=== PATIENT | female | born 1995 | race Hispanic/Latino ===

== ENCOUNTER → 2016-11-05 | Outpatient (REF) | payer OTHER ==
[2016-11-09 00:06] LABS: E001-IgE Cat Epith/Dander 3.57 kU/L (Class III); E005-IgE Dog Dander 0.88 kU/L (Class II); G002-IgE Bermuda Grass 0.22 kU/L (Class 0/I); G008-IgE Kentucky Bluegrass 0.88 kU/L (Class II); M001-IgE Penicillium chrysogen < 0.10 kU/L (Class 0); M002 IgE Cladosporium herbaru < 0.10 kU/L (Class 0); M003 IgE Aspergillus fumigatu < 0.10 kU/L (Class 0); M006-IgE Alternaria alternata < 0.10 kU/L (Class 0); T001-IgE Maple/Box Elder 0.14 kU/L (Class 0/I); T003-IgE Common Silver Birch 0.13 kU/L (Class 0/I); T007-IgE Oak, White 0.13 kU/L (Class 0/I); T008-IgE Elm, American 0.16 kU/L (Class 0/I); T041-IgE Hickory, White < 0.10 kU/L (Class 0); W001-IgE Ragweed, Short < 0.10 kU/L (Class 0); W009-IgE Plantain, English 0.15 kU/L (Class 0/I); W014-IgE Pigweed, Rough 0.12 kU/L (Class 0/I); W018-IgE Sheep Sorrel 0.14 kU/L (Class 0/I)
== END ==
LOC: M LAB REF 12:54
PROVIDERS: ATTEND Nurse Practitioner Adult Health
DX: J45.40 Moderate persistent asthma, uncomplicated (principal)

== ENCOUNTER 2017-03-20 15:59 | Emergency (ER) | payer OTHER ==
[~2017-03-20] VITALS: Ht 165.1 cm; Wt 61.8 kg
[2017-03-20] MEDS ORDERED: FERR325T3 PO (16:07)
[2017-03-20 17:10] LABS: CONTROL LINE UCG INT CTR LINE PRESENT
[2017-03-20] MEDS ORDERED: KETOROLAC 30 MG/ML VIAL (J1885) IV ONE (17:45)
[2017-03-20 18:45] LABS: BASO # 0.1 K/mm3 (0.0-0.2); BASO % 0.9 % (0.0-1.0); EOS # 0.3 K/mm3 (0.0-0.50); EOS % 3.2 % (0.0-3.0); LARGE UNSTAINED CELL # 0.2 K/mm3 (0.0-0.4); LARGE UNSTAINED CELL % 1.8 % (0.0-4.0); LYMPH # 2.4 K/mm3 (1.5-6.5); LYMPH % 23.7 % (24.0-44.0); MEAN CORPUSCULAR HGB CONC 29.2 g/dl (32.0-36.5); MEAN CORPUSCULAR VOLUME 75.2 fl (80.0-96.0); MONO # 0.5 K/mm3 (0.0-0.8); MONO % 5.2 % (0.0-5.0); NEUTROPHILS # 6.1 K/mm3 (1.8-7.7); NEUTROPHILS % 65.2 % (36.0-66.0); PLATELET COUNT, AUTOMATED 292 k/mm3 (150-450); WHITE BLOOD COUNT 9.3 K/mm3 (4.0-10.0)
[2017-03-20 18:46] LABS: ALBUMIN 4.1 GM/DL (3.2-5.2); ALBUMIN/GLOBULIN RATIO 0.98 (1.00-1.93); ALKALINE PHOSPHATASE 88 U/L (45-117); ALT/SGPT 16 U/L (12-78); ANION GAP 7 MEQ/L (8-16); AST/SGOT 22 U/L (15-37); BILIRUBIN,DIRECT 0.2 MG/DL (0.0-0.2); BILIRUBIN,TOTAL 0.5 MG/DL (0.2-1.0); BLOOD UREA NITROGEN 12 MG/DL (7-18); CALCIUM LEVEL 9.2 MG/DL (8.5-10.1); CARBON DIOXIDE LEVEL 28 MEQ/L (21-32); CHLORIDE LEVEL 106 MEQ/L (98-107); CREATININE FOR GFR 0.82 MG/DL (0.55-1.02); GLUCOSE, FASTING 86 MG/DL (70-105); POTASSIUM SERUM 4.2 MEQ/L (3.5-5.1); SODIUM LEVEL 141 MEQ/L (136-145); TOTAL PROTEIN 8.3 GM/DL (6.4-8.2)
[2017-03-20 18:55] LABS: ADD MORPHOLOGY? YES
[2017-03-20 18:56] VITALS: BP 125/67
[2017-03-20 19:41] LABS: ANISOCYTOSIS 1+; HYPOCHROMASIA 2+; MICROCYTOSIS 2+; SCHISTOCYTES 1+
[2017-03-20] MEDS ORDERED: MORPHINE 2 MG/ML 1ML SYRINGE IV ONE (20:00)
[2017-03-20] MEDS ORDERED: TRAM50TA2 PO (20:00)
--- NOTE | 2017-03-21 07:26 | REP ---
REASON: Pelvis pain. COMPARISON: None. Transvesical and transvaginal imaging was obtained. The uterus measures 5.5 x 3.2 x 4 cm. The parenchymal echo pattern is within normal limits. The endometrial echo complex is smooth and unremarkable appearing. There is a specular reflection within the endometrial cavity consistent with an IUD. The position of the IUD is within normal limits. There is no free fluid in the cul-de-sac. The right ovary measures 2.6 x 2.4 x 3.8 cm and is within normal limits with an RI of 0.72. The left ovary measures 2.6 x 2 x 1.9 cm and is within normal limits with an RI of 0.53. Urinary bladder measures 10 x 5 x 9 cm. IMPRESSION: Pelvic ultrasonography, as described above, is within normal limits. There is an IUD in place. Signed by Raul Scott DO 03/21/2017 02:43 P
== END 2017-03-20 20:20 | disposition home or self-care (01) ==
LOC: M ED 15:59
DX: N83.00 Follicular cyst of ovary, unspecified side (principal); Z97.5 Presence of (intrauterine) contraceptive device; N93.9 Abnormal uterine and vaginal bleeding, unspecified; J45.909 Unspecified asthma, uncomplicated; Z79.899 Other long term (current) drug therapy; Z91.013 Allergy to seafood; Z91.018 Allergy to other foods
CPT/HCPCS: 76830; 76856; 80048; 80076; 81001; 81025; 84703; 85025; 87086; 93976; 96374; 96375; 99283; J1885

== ENCOUNTER 2017-09-26 10:00 | Emergency (ER) | payer OTHER ==
[2017-09-26] MEDS: PERCOCET 5MG/325MG TAB PO (11:10)
[2017-09-26 11:27] LABS: BASO # 0.1 10^3/uL (0.0-0.2); BASO % 0.8 % (0.0-1.0); EOS # 0.2 10^3/uL (0.0-0.50); EOS % 2.5 % (0.0-3.0); HEMATOCRIT 33.8 % (36.0-47.0); HEMOGLOBIN 10.5 g/dl (12.0-16.0); IMMATURE GRANULOCYTE % 0.2 % (0-3.0); LYMPH # 2.2 10^3/uL (1.5-6.5); LYMPH % 25.8 % (24.0-44.0); MEAN CORPUSCULAR HEMOGLOBIN 24.3 pg (27.0-33.0); MEAN CORPUSCULAR HGB CONC 31.1 g/dl (32.0-36.5); MEAN CORPUSCULAR VOLUME 78.2 fl (80.0-96.0); MONO # 0.8 10^3/uL (0.0-0.8); NEUTROPHILS # 5.4 10^3/uL (1.8-7.7); NEUTROPHILS % 61.7 % (36.0-66.0); PLATELET COUNT, AUTOMATED 367 10^3/uL (150-450); RED BLOOD COUNT 4.32 10^6/uL (4.00-5.40); RED CELL DISTRIBUTION WIDTH 17.4 % (11.5-14.5); WHITE BLOOD COUNT 8.7 10^3/uL (4.0-10.0)
[2017-09-26 11:36] LABS: KETONE, URINE AUTO RFX NEGATIVE (NEGATIVE); LEUKOCYTE ESTERASE UR AUTO RFX NEGATIVE (NEGATIVE); MUCUS, URINE RFX SMALL (NEGATIVE); NITRITE, URINE AUTO RFX NEGATIVE (NEGATIVE); RBC, URINE AUTO RFX 2 /HPF (0-3); SPECIFIC GRAVITY UR AUTO RFX 1.025 (1.002-1.035); SQUAM EPITHELIAL CELL UR AURFX 4 /HPF (0-6); WBC, URINE AUTO RFX 4 /HPF (0-3)
[2017-09-26 11:46] LABS: ANION GAP 6 MEQ/L (8-16); BLOOD UREA NITROGEN 16 MG/DL (7-18); CALCIUM LEVEL 9.3 MG/DL (8.5-10.1); CARBON DIOXIDE LEVEL 28 MEQ/L (21-32); CHLORIDE LEVEL 105 MEQ/L (98-107); CREATININE FOR GFR 0.63 MG/DL (0.55-1.30); GLOMERULAR FILTRATION RATE > 60.0 (>60); GLUCOSE, FASTING 66 MG/DL (70-100); POTASSIUM SERUM 4.2 MEQ/L (3.5-5.1); SODIUM LEVEL 139 MEQ/L (136-145)
[2017-09-26] MEDS: ACETAMINOPHEN TAB 650MG DOSE (2X325MG) PO (13:01)
[2017-09-26] MEDS: MORPHINE 4 MG/ML 1ML VIAL (J2270) IM (14:03)
[2017-09-26 15:19] LABS: CHLAMYDIA DNA AMPLIFICATION POSITIVE (NEGATIVE); GC DNA AMPLIFICATION NEGATIVE (NEGATIVE)
== END 2017-09-26 16:40 | disposition home or self-care (01) ==
LOC: M ED 10:00
DX: N76.0 Acute vaginitis (principal); N73.0 Acute parametritis and pelvic cellulitis; Z87.42 Personal history of other diseases of the female genital tract; J45.909 Unspecified asthma, uncomplicated; D64.9 Anemia, unspecified; Z97.5 Presence of (intrauterine) contraceptive device; Z91.013 Allergy to seafood; Z91.018 Allergy to other foods; Z79.899 Other long term (current) drug therapy
CPT/HCPCS: J2270

== ENCOUNTER 2017-10-09 10:56 | Emergency (ER) | payer OTHER ==
[2017-10-09 12:39] LABS: KETONE, URINE AUTO RFX NEGATIVE (NEGATIVE); NITRITE, URINE AUTO RFX NEGATIVE (NEGATIVE); RBC, URINE AUTO RFX 2 /HPF (0-3); SPECIFIC GRAVITY UR AUTO RFX 1.021 (1.002-1.035); SQUAM EPITHELIAL CELL UR AURFX 0 /HPF (0-6); WBC, URINE AUTO RFX 0 /HPF (0-3)
[2017-10-09 12:42] LABS: LEUKOCYTE ESTERASE UR AUTO RFX TRACE (NEGATIVE)
[2017-10-09] MEDS ORDERED: LIDOCAINE 1% MDV 20ML VIAL As Ordered (13:56)
[2017-10-09] MEDS: cefTRIAXone SOD 250 MG VIAL (J0696) IM (14:08)
[2017-10-09] MEDS: AZITHROMYCIN 250 MG TAB PO (14:08)
[2017-10-09 14:10] LABS: CHLAMYDIA DNA AMPLIFICATION NEGATIVE (NEGATIVE); GC DNA AMPLIFICATION NEGATIVE (NEGATIVE)
== END 2017-10-09 14:29 | disposition home or self-care (01) ==
LOC: M ED 10:56
DX: N83.291 Other ovarian cyst, right side (principal); N89.8 Other specified noninflammatory disorders of vagina; Z20.2 Contact with and (suspected) exposure to infections with a predominantly sexual mode of transmission; Z97.5 Presence of (intrauterine) contraceptive device; Z79.899 Other long term (current) drug therapy; Z91.018 Allergy to other foods; J30.81 Allergic rhinitis due to animal (cat) (dog) hair and dander
CPT/HCPCS: J0696